=== PATIENT | female | born 1940 | race African-American/Black ===

== ENCOUNTER 2024-06-26 17:29 | Emergency (ER) | payer OTHER ==
[~2024-06-26] VITALS: Ht 160 cm; Wt 59.0 kg
[2024-06-26 17:32] VITALS: O2SAT 97
[2024-06-26 18:37] LABS: BASOPHILS % 0.9 % (0.0-2.0); EOSINOPHILS % 1.4 % (0.0-5.0); HEMATOCRIT. 29.9 % (36.0-48.0); LYMPHOCYTES % 29.6 % (20.0-50.0); MEAN CORPUSCULAR HGB CONC 33.4 g/dL (31.0-37.0); MEAN CORPUSCULAR VOLUME 86.9 fL (81.0-99.0); MEAN PLATELET VOLUME 8.8 fl (7.4-10.4); MONOCYTES % 8.3 % (2.0-8.0); NEUTROPHILS % 59.8 % (40.0-76.0); PLATELET 270 x1000/uL (130-400); RED BLOOD CELL COUNT 3.44 mill/uL (4.2-5.4)
[2024-06-26 18:41] LABS: CHLORIDE 100 mEq/L (98-107); SODIUM 137 mEq/L (136-145)
[2024-06-26 18:42] LABS: CALCIUM 9.4 mg/dL (8.7-10.4); CARBON DIOXIDE 31 mEq/L (21-32)
[2024-06-26 18:44] LABS: INR 0.9; PROTHROMBIN TIME 10.5 sec (9.6-11.0)
[2024-06-26 18:47] LABS: CREATININE 2.1 mg/dL (0.6-1.0); GLUCOSE 90 mg/dL (70-105); UREA NITROGEN BLOOD 14 mg/dL (9-23)
[2024-06-26 18:48] LABS: TROPONIN I HIGH SENSITIVITY 31 ng/L (3.0-34)
[2024-06-26 18:51] LABS: THYROID STIMULATING HORMONE 3.34 uIU/mL (0.55-4.78)
[2024-06-26] MEDS ORDERED: POTASSIUM CHLORIDE 20MEQ TABLET SR PO ONE (19:00)
[2024-06-26] MEDS ORDERED: SODIUM CHLORIDE 0.9% 500 ML IV ONE (20:45)
[2024-06-26 21:48] VITALS: BP 143/69; PULSE 95; RESP 16; TEMP 37.55856; O2SAT 95
== END 2024-06-26 21:37 | disposition short-term general hospital (02) ==
LOC: ER 17:29 → EDBEDREQ 17:40 → 5WST 21:32 → UNDOADMIN 21:32 → 5WST 21:37 → UNDODISIN 22:00
DX: R00.2 Palpitations (principal); I10 Essential (primary) hypertension; Z99.2 Dependence on renal dialysis; Z88.8 Allergy status to other drugs, medicaments and biological substances; Z88.0 Allergy status to penicillin
CPT/HCPCS: 99285; 71045; 80048; 83880; 83735; 84443; 85025; 85610; 86850; 86900; 86901; 84484; 36415; 72170; 93005; J7040

== ENCOUNTER 2024-11-13 18:14 | Emergency (ER) | payer OTHER ==
[~2024-11-13] VITALS: Ht 167.6 cm; Wt 80.0 kg
[2024-11-13 18:18] VITALS: O2SAT 100
[2024-11-13] MEDS ORDERED: MECLIZINE 25MG TABLET PO STA (18:50)
[2024-11-13 19:46] VITALS: TEMP 36.4
[2024-11-13] MEDS: MECLIZINE 25MG TABLET PO NR (19:52)
[2024-11-13] MEDS: ONDANSETRON HCL 4MG/2ML INJ IV STA (19:52)
[2024-11-13 20:07] LABS: DIFFERENTIAL COMMENT 1; HEMATOCRIT. 35.1 % (36.0-48.0); HEMOGLOBIN. 11.5 g/dL (12.0-16.0); MEAN CORPUSCULAR HEMOGLOBIN 26.5 pg (28.0-32.0); MEAN CORPUSCULAR HGB CONC 32.7 g/dL (31.0-37.0); MEAN CORPUSCULAR VOLUME 80.9 fL (81.0-99.0); MEAN PLATELET VOLUME 9.1 fl (7.4-10.4); PLATELET 276 x1000/uL (130-400); RED BLOOD CELL COUNT 4.33 mill/uL (4.2-5.4); RED CELL DISTRIBUTION WIDTH 18.9 % (11.6-14.6); WHITE BLOOD COUNT 10.9 x1000/uL (4.5-11.0)
[2024-11-13 20:10] LABS: POTASSIUM 3.3 mEq/L (3.5-5.1)
[2024-11-13 20:11] LABS: CALCIUM 8.8 mg/dL (8.7-10.4)
[2024-11-13 20:16] LABS: CREATININE 2.2 mg/dL (0.6-1.0)
[2024-11-13 20:18] LABS: PROTHROMBIN TIME 10.9 sec (9.6-11.0)
[2024-11-13] MEDS: LOSARTAN 50 MG TABLET PO ONE (20:19)
[2024-11-13 20:23] LABS: ANISOCYTOSIS 1+; PLATELET ESTIMATE NORMAL
[2024-11-13] MEDS: HYDRALAZINE 20MG/ML VIAL IV ONE (20:28)
[2024-11-13 21:00] LABS: TROPONIN I HIGH SENSITIVITY 23 ng/L (3.0-34)
[2024-11-13] MEDS: LISINOPRIL 10MG TABLET PO NR (21:58)
[2024-11-13 23:20] VITALS: BP 154/70; PULSE 80; RESP 20; O2SAT 100
== END 2024-11-13 23:22 | disposition home or self-care (01) ==
LOC: ER 18:14
DX: I12.0 Hypertensive chronic kidney disease with stage 5 chronic kidney disease or end stage renal disease (principal); R42 Dizziness and giddiness; N18.6 End stage renal disease; Z99.2 Dependence on renal dialysis; Z88.6 Allergy status to analgesic agent; Z88.0 Allergy status to penicillin
CPT/HCPCS: 99285; 96374; 70450; 71045; 96375; 80048; 85025; 85610; 84484; 36415; J8597; J0360; J2405